=== PATIENT | male | born 1975 | race Two or more races ===

== ENCOUNTER 2019-05-08 13:10 | Emergency (ER) | payer SELFPAY ==
[~2019-05-08] VITALS: Ht 167.6 cm; Wt 113.2 kg
[2019-05-08 13:16] VITALS: Ht 167.6 cm; Wt 113.2 kg
[2019-05-08 13:46] LABS: BASOPHILS 0.1 % (0-2); EOSINOPHILS 0.3 % (0-7); HEMATOCRIT 41.2 % (42.0-54.0); HEMOGLOBIN 14.4 g/dL (13.5-17.5); IMMATURE GRANULOCYTES 1.3 % (0-5); LYMPHOCYTES 11.8 % (15-50); MCH 31.9 pg (26.0-34.0); MCV 91.2 fL (80.0-100.0); MEAN PLATELET VOLUME 9.7 fL (7.4-10.4); MONOCYTES 11.6 % (2-11); NEUTROPHILS 74.9 % (40-80); PLATELET COUNT 282 10x3/uL (130-400); RBC 4.52 10x6/uL (4.20-6.10); RDW 12.3 % (11.5-14.5); WBC 18.3 10x3/uL (4.8-10.8)
[2019-05-08 13:56] LABS: CALC OSMOLALITY 267 mosm/kg (275-300); CALCIUM 8.5 mg/dL (8.5-10.1); CARBON DIOXIDE 22.9 mmol/L (21.0-32.0); CHLORIDE - SERUM 98 mmol/L (98-107); CREATININE - SERUM 1.1 mg/dL (0.6-1.3); GLUCOSE 177 mg/dL (74-106); POTASSIUM - SERUM 3.4 mmol/L (3.5-5.1); SODIUM 133 mmol/L (136-145); UREA NITROGEN 7 mg/dL (7-18); eGFR NON AFRICAN AMERICAN 77 mL/min (90-120)
[2019-05-08 14:02] LABS: ALBUMIN 2.9 g/dL (3.4-5.0); ALKALINE PHOSPHATASE 135 U/L (46-116); ALT (SGPT) 31 U/L (10-68); PROTEIN - SERUM 9.3 g/dL (6.4-8.2)
[2019-05-08] MEDS ORDERED: ALBUTEROL SULF8.5 GM INH (14:53)
[2019-05-08] MEDS ORDERED: ZITHROMAX500 MG PO (14:53)
[2019-05-08] MEDS ORDERED: MEDROL DOSE PACK4 MG PO (14:53)
[2019-05-08 17:39] VITALS: BP 123/85
== END 2019-05-08 16:55 | disposition home or self-care (01) ==
LOC: D.ER 13:10
PROVIDERS: Emergency Medicine
DX: J40 Bronchitis, not specified as acute or chronic (principal); J06.9 Acute upper respiratory infection, unspecified; R51 Headache